=== PATIENT | female | born 1980 | race American Indian/Alaskan Native ===

== ENCOUNTER 2018-02-10 14:00 | Emergency (ER) | payer SELFPAY ==
[2018-02-10 14:14] VITALS: BP 111/45
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
[2018-02-10 15:09] LABS: Bacteria,Urine 1+ /HPF (Negative); Bilirubin,Urine NEG (Negative); Blood,Urine NEG (Negative); Color,Urine Yellow (Yellow); Mucus,Urine FEW /HPF; Protein,Urine <15 mg/dL mg/dL (Negative)
[2018-02-10 15:12] LABS: HCG Qualitative,Urine Negative (Negative)
== END 2018-02-10 15:30 | disposition home or self-care (01) ==
LOC: ED 14:00
DX: M50.30 Other cervical disc degeneration, unspecified cervical region (principal); F17.200 Nicotine dependence, unspecified, uncomplicated
CPT/HCPCS: 81001; 81025; 99283